=== PATIENT | male | born 1995 | race African-American/Black ===

== ENCOUNTER 2023-04-21 10:42 | Emergency (ER) | payer SELFPAY ==
--- NOTE | ~2023-04-21 | XR_ITS ---
EXAMINATION: XR tibia fibula RT 2V INDICATION: Right leg pain TECHNIQUE: Two views of the right tibia and fibula are obtained on three radiographs. COMPARISON: None available FINDINGS: There is a soft tissue laceration lateral to the distal fibula. No underlying osseous abnor mality is identified. There is no fracture. Alignment at the knee and ankle is normal. IMPRESSION: 1. Soft tissue laceration without acute osseous abnormality. Reviewed, dictated and finalized at location A.
[2023-04-21 10:48] VITALS: BP 119/103; PULSE 72; RESP 16; TEMP 36.4; O2SAT 100
[2023-04-21 10:50] VITALS: BP 111/59; PULSE 67; RESP 16; TEMP 36.3; O2SAT 99
[2023-04-21] MEDS: TETANUS,DIPHTHERIA,AC PERTUSSIS ADULT (0.5 ML) BOOSTRIX IM (11:38)
[2023-04-21] MEDS: LIDOCAINE HCL 1% LOCAL INJ 10 ML VIAL 5 ML INFILTRATE (11:39)
--- NOTE | 2023-04-21 11:45 | ED.WOUNDLAC ---
HPI - Wound/Laceration General Chief Complaint: Wound/Laceration Stated Complaint: honghelf fell on foot - open wound to foot Time Seen by Provider: 04/21/23 10:57 Source: patient Mode of arrival: ambulatory Limitations: no limitations History of Present Illness HPI narrative: Patient is a 28-year-old male who presents to the ED with report of a laceration to his right lower leg. Patient reports he was moving furniture today for a customer and a large heavy bookshelf began falling. He tried to catch it, but was unable to. A sharp corner of the bookshelf came down on his right lateral lower leg, sustaining a large skin avulsion/laceration. Patient complains of pain to this area. He did also sustain small abrasions to his right second and third knuckles. Denies any other injuries. He has been able to walk since the injury. Denies numbness or tingling. Tetanus status unknown. Related Data Allergies Allergy/AdvReac Type Severity Reaction Status Date / Time No Known Allergies Allergy Verified 04/21/23 10:50 Review of Systems Review of Systems: CONSTITUTIONAL: Denies fever, chills, or sweats. SKIN: See HPI. MUSCULOSKELETAL: See HPI. NEUROLOGIC: See HPI. All systems reviewed & are unremarkable except as noted in HPI and below Exam Narrative: GENERAL: Well appearing, well-nourished, non-toxic, in no acute distress. HEAD: Normocephalic, atraumatic. NECK: Supple. No adenopathy, no masses. RESPIRATORY: Airway patent, respirations nonlabored. Clear to auscultation bilaterally, no rales, rhonchi, wheezing. CARDIOVASCULAR: Regular rate and rhythm without murmurs, rubs, or gallops. Pedal pulses 2+ and equal bilaterally. MUSCULOSKELETAL: Moves all extremities. Strength/ROM intact. Full dorsi and plantarflexion range of motion of left ankle, some discomfort reported with this, but ROM not limited. Large approx 12 cm jagged skin avulsion/flap to right lateral lower leg, some of the laceration is able to be approximated, however the wound edges are jagged. Skin at the tip of the flap is very thin, unable to approximate fully, partial skin avulsion. No significant active bleeding. Sensation intact. SKIN: Warm, dry, normal color. No rashes. NEURO: A&O X3. Speech clear. Cranial nerves II-XII grossly intact. No ataxic movements. PSYCHIATRIC: Appropriate mood and affect. Normal interaction. Course Vital Signs Vital signs: Vital Signs Temperature 97.6 F 04/21/23 10:48 Pulse Rate 72 04/21/23 10:48 Respiratory Rate 16 04/21/23 10:48 Blood Pressure 119/103 H 04/21/23 10:48 Pulse Oximetry 100 04/21/23 10:48 Oxygen Delivery Room Air 04/21/23 10:48 Temperature 97.3 F L 04/21/23 10:50 Pulse Rate 61 04/21/23 13:31 Respiratory Rate 16 04/21/23 13:31 Blood Pressure 119/56 L 04/21/23 13:31 Pulse Oximetry 100 04/21/23 13:31 Oxygen Delivery Room Air 04/21/23 10:50 Procedures Laceration Laceration 1: Date: 04/21/23 Time: 13:00 Site: lower extremity Side (If applicable): right Size (cm): 12 Description: flap and irregular Depth: simple, single layer Local Anesthetic: lidocaine 1% Amount of anesthesia used (mL): 10 Pre-repair: wound explored, irrigated, irrigated extensively and deep structures intact ====== Skin Level ====== Skin layer closed with: nylon Size (cm): 4-0 Number of sutures: 12 Technique: simple, interrupted ====== Subcutaneous Layer ====== ====== Muscle Layer ====== ====== Tendon Layer ====== MDM - Wound/Laceration MDM Narrative Medical decision making narrative: Patient presented to ED with large laceration/skin avulsion to right lateral lower leg. X-ray obtained and without acute osseous abnormality. No sign of deeper tendon or muscle injury. Patient with full range of motion of R lower leg and ankle. Laceration was thoroughly irrigated and repaired withou
[2023-04-21 13:31] VITALS: BP 119/56; PULSE 61; RESP 16; O2SAT 100
== END 2023-04-21 13:47 | disposition home or self-care (01) ==
PROVIDERS: Emergency Provider Physician Assistant
DX: S81.811A Laceration without foreign body, right lower leg, initial encounter (principal); Z23 Encounter for immunization; W20.8XXA Other cause of strike by thrown, projected or falling object, initial encounter
CPT/HCPCS: 12004; 73590; 90471; 90715; 99283